=== PATIENT | male | born 1960 | race Hispanic/Latino ===

== ENCOUNTER 2021-08-12 01:08 | Inpatient (IN) | payer OTHER ==
[2021-08-12 03:32] VITALS: BMI 25.2
[2021-08-12] MEDS ORDERED: Ondansetron ODT 4 MG TAB PO PRN (04:01)
[2021-08-12] MEDS ORDERED: Acetaminophen 650 MG Suppository PR PRN (04:01)
[2021-08-12] MEDS: Morphine 2 MG/ML VIAL SLOW IVP PRN ×2 (05:02→11:37)
[2021-08-12] MEDS ORDERED: hydrALAZINE 20 MG/ML VIAL SLOW IVP PRN (06:22)
[2021-08-12] MEDS ORDERED: Sodium Chloride 0.9% 1,000 ML IV SCH ×2 (06:45→07:45)
[2021-08-12 07:00] LABS: Hemoglobin A1c 5.1 % (4.0-6.0)
[2021-08-12 07:33] LABS: HBCM Index 0.08 S/CO (0-0.79); HBSAg Index 0.19 S/CO (0-0.99); Hep A IgM AB Non-Reactive (NonReactive); Hep A IgM S/CO 0.35 S/CO (0-0.79); Hep B Surf Ag Non-Reactive S/CO (NonReactive); Hepatitis B Core IgM Abs Non-Reactive (NonReactive)
[2021-08-12 07:36] LABS: Hep C IgG Ab Reflex HepC Qnt (NonReactive)
[2021-08-12] MEDS: Acetaminophen 325 MG TAB PO PRN ×2 (08:49→18:04)
[2021-08-12] MEDS: Sodium Chloride 0.9% 1,000 ML IV SCH ×2 (08:50→20:37)
[2021-08-12] MEDS ORDERED: Enoxaparin Sodium 80 MG/0.8 ML SYRINGE SC SCH (09:00)
[2021-08-12 11:42] LABS: Hep C Index 14.53 S/CO (0-0.79)
[2021-08-12] MEDS ORDERED: Folic Acid 1 MG TAB PO SCH (13:45)
[2021-08-12] MEDS ORDERED: Thiamine 100 MG TAB PO SCH (13:45)
[2021-08-12] MEDS ORDERED: Magnevist 469MG/ML 20 ML VIAL ONE (15:06)
[2021-08-12] MEDS: Enoxaparin Sodium 80 MG/0.8 ML SYRINGE SC SCH (20:37)
[2021-08-12] MEDS: Morphine 4 MG/ML VIAL SLOW IVP PRN (22:15)
[2021-08-13] MEDS: Morphine 4 MG/ML VIAL SLOW IVP PRN ×6 (03:00→23:13)
[2021-08-13 06:16] LABS: #Basophils 0.1 thou/uL (0.0-0.2); #Eosinphils 0.1 thou/uL (0.0-0.7); #Lymphocytes 1.5 thou/uL (1.20-3.40); #Monocytes 0.6 thou/uL (0.11-0.59); %Basophils 0.8 % (0.0-1.0); %Eosinophils 1.8 % (0.0-10.0); %Lymphocytes 23.9 % (21.0-51.0); %Monocytes 9.9 % (0.0-10.0); %Neutrophils 63.6 % (42.0-75.0); Hemoglobin 14.4 g/dL (14.0-18.0); Mean Corpuscular HGB CONC 33.2 g/dL (32.0-36.0); Mean Corpuscular Hemoglobin 32.5 pg (27.0-31.0); Mean Corpuscular Volume 97.9 fL (78.0-98.0); Mean Platelet Volume 7.8 fL (7.4-10.4); Platelet Count 143 thou/uL (130-400); Red Blood Cell (RBC) Count 4.43 mill/uL (4.70-6.10); White Blood Cell (WBC) Count 6.3 thou/uL (4.8-10.8)
[2021-08-13 06:28] LABS: Anion Gap 9 mmol/L (10-20); BUN (Urea Nitrogen) 13 mg/dL (8.4-25.7); Calc. Creatinine Clearance 132 mL/min (70-130); Calcium 8.7 mg/dL (7.8-10.44); Carbon Dioxide 25 mmol/L (22-29); Chloride 103 mmol/L (98-107); Glucose 95 mg/dL (70-105); Potassium 3.6 mmol/L (3.5-5.1); Sodium 133 mmol/L (136-145)
[2021-08-13] MEDS: Enoxaparin Sodium 80 MG/0.8 ML SYRINGE SC SCH ×2 (08:10→19:47)
[2021-08-13] MEDS: Thiamine 100 MG TAB PO SCH (08:10)
[2021-08-13] MEDS: Multivit, Therapeutic 1 TAB PO SCH (08:10)
[2021-08-13] MEDS: Folic Acid 1 MG TAB PO SCH (08:10)
[2021-08-13] MEDS: Sodium Chloride 0.9% 1,000 ML IV SCH ×2 (12:16→12:50)
[2021-08-13] MEDS: HYDROcodone/Acetaminophen 5/325 mg Tablet PO PRN (14:37)
[2021-08-13] MEDS: Ondansetron PF 4 MG/2 ML Vial IVP PRN (19:59)
[2021-08-13] MEDS ORDERED: Electrolyte Replacement Protocol 1 EACH FS SCH (20:45)
[2021-08-13] MEDS ORDERED: Lorazepam 0.5 MG TAB PO PRN (20:57)
[2021-08-14] MEDS: Ondansetron PF 4 MG/2 ML Vial IVP PRN (00:51)
[2021-08-14] MEDS: HYDROcodone/Acetaminophen 5/325 mg Tablet PO PRN (00:59)
[2021-08-14] MEDS: Morphine 4 MG/ML VIAL SLOW IVP PRN ×4 (02:46→20:16)
[2021-08-14 06:36] LABS: #Lymphocytes 1.1 thou/uL (1.20-3.40); #Monocytes 0.8 thou/uL (0.11-0.59); #Neutrophils 5.7 thou/uL (1.40-6.50); %Basophils 0.1 % (0.0-1.0); %Eosinophils 0.3 % (0.0-10.0); %Lymphocytes 13.8 % (21.0-51.0); %Monocytes 10.6 % (0.0-10.0); %Neutrophils 75.2 % (42.0-75.0); Hemoglobin 14.1 g/dL (14.0-18.0); Mean Corpuscular HGB CONC 32.2 g/dL (32.0-36.0); Mean Corpuscular Hemoglobin 31.3 pg (27.0-31.0); Mean Corpuscular Volume 97.4 fL (78.0-98.0); Mean Platelet Volume 7.9 fL (7.4-10.4); Platelet Count 147 thou/uL (130-400); RBC Distribution Width 12.9 % (11.5-14.5); Red Blood Cell (RBC) Count 4.51 mill/uL (4.70-6.10); White Blood Cell (WBC) Count 7.6 thou/uL (4.8-10.8)
[2021-08-14 06:52] LABS: Phosphorus 3.7 mg/dL (2.3-4.7)
[2021-08-14 07:00] LABS: ALT (SGPT) 52 U/L (8-55); AST (SGOT) 221 U/L (5-34); Albumin 3.3 g/dL (3.5-5.0); Alkaline Phosphatase 172 U/L (40-110); Anion Gap 13 mmol/L (10-20); BUN (Urea Nitrogen) 11 mg/dL (8.4-25.7); Bilirubin, Total 1.2 mg/dL (0.2-1.2); Calc. Creatinine Clearance 125 mL/min (70-130); Calcium 8.3 mg/dL (7.8-10.44); Carbon Dioxide 22 mmol/L (22-29); Chloride 101 mmol/L (98-107); Globulin 3.7 g/dL (2.4-3.5); Glucose 105 mg/dL (70-105); Magnesium 1.7 mg/dL (1.6-2.6); Potassium 3.7 mmol/L (3.5-5.1); Sodium 132 mmol/L (136-145)
[2021-08-14] MEDS ORDERED: Magnesium Sulfate 2 GM in Sodium Chloride 0.9% 100 ML IVPB SCH (08:00)
[2021-08-14] MEDS: Enoxaparin Sodium 80 MG/0.8 ML SYRINGE SC SCH ×2 (09:45→22:00)
[2021-08-14] MEDS: Multivit, Therapeutic 1 TAB PO SCH (09:45)
[2021-08-14] MEDS: Thiamine 100 MG TAB PO SCH (09:46)
[2021-08-14] MEDS: Folic Acid 1 MG TAB PO SCH (09:46)
[2021-08-14] MEDS: Sodium Chloride 0.9% 1,000 ML IV SCH (09:47)
[2021-08-14 19:14] LABS: HCV log10 6.887 (.); Hep C PCR-Quant 7710000 IU/mL (.)
[2021-08-14] MEDS ORDERED: Polyethylene Glycol 3350 17 GM Packet PO PRN (19:27)
[2021-08-14] MEDS: Senokot S 8.6-50 MG TAB PO SCH (21:59)
[2021-08-15] MEDS: HYDROcodone/Acetaminophen 5/325 mg Tablet PO PRN ×3 (00:33→13:54)
[2021-08-15] MEDS: Morphine 4 MG/ML VIAL SLOW IVP PRN (01:37)
[2021-08-15] MEDS: Sodium Chloride 0.9% 1,000 ML IV SCH (06:07)
[2021-08-15] MEDS: Enoxaparin Sodium 80 MG/0.8 ML SYRINGE SC SCH (09:12)
[2021-08-15] MEDS: Senokot S 8.6-50 MG TAB PO SCH (09:13)
[2021-08-15] MEDS: Multivit, Therapeutic 1 TAB PO SCH (09:14)
[2021-08-15] MEDS: Thiamine 100 MG TAB PO SCH (09:14)
[2021-08-15] MEDS: Folic Acid 1 MG TAB PO SCH (09:14)
[2021-08-15] MEDS: Morphine IR 10 MG/5 ML UDCUP PO PRN ×2 (11:54→18:14)
[2021-08-15] MEDS: Apixaban 5 MG TAB PO SCH (20:45)
[2021-08-15] MEDS ORDERED: Polyethylene Glycol 3350 17 GM Packet PO SCH (21:00)
[2021-08-16] MEDS: Senokot S 8.6-50 MG TAB PO SCH ×2 (01:45→08:24)
[2021-08-16] MEDS: Sodium Chloride 0.9% 1,000 ML IV SCH (01:48)
[2021-08-16] MEDS: HYDROcodone/Acetaminophen 5/325 mg Tablet PO PRN ×2 (01:57→08:46)
[2021-08-16] MEDS: Apixaban 5 MG TAB PO SCH (08:24)
[2021-08-16] MEDS: Folic Acid 1 MG TAB PO SCH (08:25)
[2021-08-16] MEDS: Multivit, Therapeutic 1 TAB PO SCH (08:25)
[2021-08-16 08:57] VITALS: BP 166/86; TEMP 98.2
[2021-08-16] MEDS: Morphine IR 10 MG/5 ML UDCUP PO PRN (11:57)
[2021-08-16] MEDS ORDERED: Lorazepam 0.5 MG TAB PO PRN (20:40)
== END 2021-08-16 12:21 | disposition home or self-care (01) | DRG 441 ==
LOC: T4-A 01:08 → OBSVTOIN 08-13 08:27
PROVIDERS: ADMIT Internal Medicine; ATTEND Internal Medicine
DX: I81 Portal vein thrombosis (principal); K85.90 Acute pancreatitis without necrosis or infection, unspecified; C22.0 Liver cell carcinoma; K76.6 Portal hypertension; E87.1 Hypo-osmolality and hyponatremia; Z20.822 Contact with and (suspected) exposure to COVID-19; K70.31 Alcoholic cirrhosis of liver with ascites; B19.20 Unspecified viral hepatitis C without hepatic coma; F10.20 Alcohol dependence, uncomplicated; E86.0 Dehydration; R79.89 Other specified abnormal findings of blood chemistry; R00.1 Bradycardia, unspecified; K86.89 Other specified diseases of pancreas
CPT/HCPCS: 36415; 74183; 76705; 80048; 80053; 80074; 82105; 83036; 83735; 84100; 85025; 87522; 93005; 93010; 96372; 96374; 96376; A9579; G0378; J0360; J1650; J2270; J2405; J3475; J3490; J7050

== ENCOUNTER 2022-05-01 18:51 | Inpatient (IN) | payer OTHER ==
[2022-05-01] MEDS ORDERED: Ondansetron PF 4 MG/2 ML Vial ONE (19:25)
[2022-05-01] MEDS ORDERED: Octreotide Acetate 100 MCG/ML VIAL ONE (19:25)
[2022-05-01] MEDS ORDERED: Morphine 4 MG/ML VIAL ONE (19:25)
[2022-05-01] MEDS ORDERED: cefTRIAXone\\ROCEPHIN 2 GM VIAL ONE (19:25)
[2022-05-01] MEDS ORDERED: Pantoprazole 40 MG VIAL ONE (19:25)
[2022-05-01] MEDS ORDERED: Octreotide Acetate 1,250 MCG in Sodium Chloride 0.9% 250 ML 250 ML IVPB SCH (19:30)
[2022-05-01] MEDS ORDERED: Pantoprazole 80 MG, Admixture Fee 1 EACH in Sodium Chloride 0.9% 100 ML IVPB SCH (19:30)
[2022-05-01 19:44] LABS: #Basophils 0.1 thou/uL (0.0-0.2); #Eosinphils 0.1 thou/uL (0.0-0.7); #Lymphocytes 1.5 thou/uL (1.20-3.40); #Monocytes 0.4 thou/uL (0.11-0.59); #Neutrophils 3.9 thou/uL (1.40-6.50); %Basophils 0.9 % (0.0-1.0); %Eosinophils 1.5 % (0.0-10.0); %Lymphocytes 25.2 % (21.0-51.0); %Monocytes 6.8 % (0.0-10.0); %Neutrophils 65.7 % (42.0-75.0); Hemoglobin 12.4 g/dL (14.0-18.0); Mean Corpuscular HGB CONC 34.7 g/dL (32.0-36.0); Mean Corpuscular Hemoglobin 33.4 pg (27.0-31.0); Mean Corpuscular Volume 96.2 fl (78.0-98.0); Mean Platelet Volume 7.6 fL (7.4-10.4); Platelet Count 114 10x3/uL (130-400); RBC Distribution Width 14.7 % (11.5-14.5); Red Blood Cell (RBC) Count 3.71 mill/uL (4.70-6.10); White Blood Cell (WBC) Count 5.9 10x3/uL (4.8-10.8)
[2022-05-01 19:57] LABS: INR-International Normal Ratio 1.1; Prothrombin Time 14.2 sec (12.0-14.7)
[2022-05-01 19:58] LABS: PTT 29.9 sec (22.9-36.1)
[2022-05-01 20:02] LABS: ALT (SGPT) 45 U/L (8-55); AST (SGOT) 73 U/L (5-34); Albumin 3.6 g/dL (3.4-4.8); Alkaline Phosphatase 264 U/L (40-110); Anion Gap 13 mmol/L (10-20); BUN (Urea Nitrogen) 28 mg/dL (8.4-25.7); Bilirubin, Total 0.6 mg/dL (0.2-1.2); Calc. Creatinine Clearance 0 mL/min (70-130); Calcium 8.9 mg/dL (7.8-10.44); Carbon Dioxide 23 mmol/L (23-31); Chloride 108 mmol/L (98-107); Estimated GFR 104; Globulin 3.8 g/dL (2.4-3.5); Glucose 102 mg/dL (80-115); Potassium 3.9 mmol/L (3.5-5.1); Protein, Total 7.4 g/dL (5.8-8.1); Sodium 140 mmol/L (136-145)
[2022-05-01] MEDS ORDERED: Acetaminophen 325 MG TAB PO PRN (21:30)
[2022-05-01] MEDS ORDERED: Ondansetron PF 4 MG/2 ML Vial IVP PRN (21:30)
[2022-05-01] MEDS ORDERED: Ondansetron ODT 4 MG TAB SL PRN (21:30)
[2022-05-01] MEDS: Sodium Chloride 0.9% 1,000 ML IV SCH (22:00)
[2022-05-01 22:54] VITALS: BMI 24.7
[2022-05-01 23:41] LABS: Hemoglobin 11.1 g/dL (14.0-18.0)
[2022-05-02 00:11] LABS: SARS-CoV-2 NAA Rapid Test Not Detected (NotDetected)
[2022-05-02] MEDS: Sodium Chloride 0.9% 1,000 ML IV SCH ×2 (05:16→14:27)
[2022-05-02 06:07] LABS: #Eosinphils 0.1 thou/uL (0.0-0.7); #Lymphocytes 1.2 thou/uL (1.20-3.40); #Monocytes 0.4 thou/uL (0.11-0.59); #Neutrophils 2.2 thou/uL (1.40-6.50); %Basophils 0.6 % (0.0-1.0); %Eosinophils 2.3 % (0.0-10.0); %Monocytes 10.4 % (0.0-10.0); %Neutrophils 56.7 % (42.0-75.0); Hemoglobin 11.1 g/dL (14.0-18.0); Mean Corpuscular HGB CONC 33.3 g/dL (32.0-36.0); Mean Corpuscular Hemoglobin 32.3 pg (27.0-31.0); Mean Corpuscular Volume 96.9 fl (78.0-98.0); Mean Platelet Volume 7.6 fL (7.4-10.4); Platelet Count 82 10x3/uL (130-400); RBC Distribution Width 14.5 % (11.5-14.5); Red Blood Cell (RBC) Count 3.44 mill/uL (4.70-6.10); White Blood Cell (WBC) Count 3.9 10x3/uL (4.8-10.8)
[2022-05-02 06:20] LABS: Anion Gap 9 mmol/L (10-20); BUN (Urea Nitrogen) 21 mg/dL (8.4-25.7); Calc. Creatinine Clearance 99 mL/min (70-130); Carbon Dioxide 22 mmol/L (23-31); Chloride 110 mmol/L (98-107); Estimated GFR 105; Glucose 94 mg/dL (80-115); Potassium 4.2 mmol/L (3.5-5.1); Sodium 137 mmol/L (136-145)
[2022-05-02] MEDS: Pantoprazole 40 MG VIAL IVP SCH ×2 (10:04→20:07)
[2022-05-02] MEDS ORDERED: Lidocaine 1% PF 5 ML VIAL ONE (12:17)
[2022-05-02] MEDS ORDERED: PROPOFOL 200 MG/20 ML VIAL ONE (12:17)
[2022-05-02] MEDS ORDERED: hydrALAZINE 20 MG/ML VIAL ONE (12:47)
[2022-05-02] MEDS ORDERED: Fentanyl 100 MCG/2 ML VIAL ONE (12:58)
[2022-05-02] MEDS: Fentanyl 100 MCG/2 ML VIAL SLOW IVP PRN (14:26)
[2022-05-02] MEDS: cefTRIAXone\\ROCEPHIN 1 GM in Sodium Chloride 0.9% 100 ML IVPB SCH (14:27)
[2022-05-02] MEDS: Morphine 2 MG/ML VIAL SLOW IVP PRN ×2 (15:52→20:08)
[2022-05-02] MEDS ORDERED: Acetaminophen 325 MG TAB PO SCH ×2 (17:30)
[2022-05-02] MEDS ORDERED: Carvedilol 6.25 MG TAB PO SCH (17:45)
[2022-05-03] MEDS: Octreotide Acetate 1,250 MCG in Sodium Chloride 0.9% 250 ML 250 ML IVPB SCH (02:58)
[2022-05-03] MEDS: Fentanyl 100 MCG/2 ML VIAL SLOW IVP PRN (02:59)
[2022-05-03 06:01] LABS: Hemoglobin 12.3 g/dL (14.0-18.0)
[2022-05-03 06:28] LABS: Anion Gap 11 mmol/L (10-20); BUN (Urea Nitrogen) 12 mg/dL (8.4-25.7); Calc. Creatinine Clearance 110 mL/min (70-130); Calcium 8.3 mg/dL (7.8-10.44); Carbon Dioxide 20 mmol/L (23-31); Chloride 107 mmol/L (98-107); Estimated GFR 108; Glucose 106 mg/dL (80-115); Potassium 3.7 mmol/L (3.5-5.1); Sodium 134 mmol/L (136-145)
[2022-05-03] MEDS: Carvedilol 6.25 MG TAB PO SCH ×2 (08:59→18:12)
[2022-05-03] MEDS: Pantoprazole 40 MG VIAL IVP SCH ×2 (08:59→20:55)
[2022-05-03] MEDS: Sodium Chloride 0.9% 1,000 ML IV SCH (13:42)
[2022-05-03] MEDS: cefTRIAXone\\ROCEPHIN 1 GM in Sodium Chloride 0.9% 100 ML IVPB SCH (13:42)
[2022-05-03] MEDS: Morphine 2 MG/ML VIAL SLOW IVP PRN (20:53)
[2022-05-04] MEDS: Sodium Chloride 0.9% 1,000 ML IV SCH (05:29)
[2022-05-04 08:58] VITALS: TEMP 97.6
[2022-05-04] MEDS: Pantoprazole 40 MG VIAL IVP SCH (09:11)
[2022-05-04] MEDS: Carvedilol 6.25 MG TAB PO SCH (09:11)
[2022-05-04] MEDS: Octreotide Acetate 1,250 MCG in Sodium Chloride 0.9% 250 ML 250 ML IVPB SCH (10:15)
[2022-05-04 12:57] VITALS: BP 129/76
== END 2022-05-04 13:48 | disposition home or self-care (01) | DRG 432 ==
LOC: ERS 18:51 → SURG A 21:13
PROVIDERS: ADMIT Student in an Organized Health Care Education/Training Program; ATTEND Internal Medicine
PROC: 06L38CZ Occlusion of Esophageal Vein with Extraluminal Device, Via Natural or Artificial Opening Endoscopic (ICD-10-PCS; principal; 2022-05-02)
DX: K70.30 Alcoholic cirrhosis of liver without ascites (principal); I85.11 Secondary esophageal varices with bleeding; C22.8 Malignant neoplasm of liver, primary, unspecified as to type; D62 Acute posthemorrhagic anemia; K76.6 Portal hypertension; Z20.822 Contact with and (suspected) exposure to COVID-19; I10 Essential (primary) hypertension; K21.9 Gastro-esophageal reflux disease without esophagitis; D69.59 Other secondary thrombocytopenia; K31.89 Other diseases of stomach and duodenum; B18.2 Chronic viral hepatitis C; Z87.891 Personal history of nicotine dependence; Z79.899 Other long term (current) drug therapy
CPT/HCPCS: 36415; 71045; 80048; 80053; 84484; 85014; 85018; 85025; 85610; 85730; 86850; 86900; 86901; 93005; 96365; 96375; C9113; J0360; J0696; J2270; J2272; J2354; J2405; J2704; J3010; J3490; J7050; U0002

== ENCOUNTER 2022-05-12 15:13 | Inpatient (IN) | payer OTHER ==
[~2022-05-12 15:13] MED LIST: Iopamidol-370 76% 500 ML 1 ML ONE
[2022-05-12 17:14] LABS: #Eosinphils 0.2 thou/uL (0.0-0.7); #Lymphocytes 1.3 thou/uL (1.20-3.40); #Monocytes 0.5 thou/uL (0.11-0.59); #Neutrophils 2.9 thou/uL (1.40-6.50); %Basophils 0.8 % (0.0-1.0); %Eosinophils 3.5 % (0.0-10.0); %Lymphocytes 27.3 % (21.0-51.0); %Monocytes 9.7 % (0.0-10.0); %Neutrophils 58.6 % (42.0-75.0); Hemoglobin 12.3 g/dL (14.0-18.0); Mean Corpuscular HGB CONC 35.1 g/dL (32.0-36.0); Mean Corpuscular Hemoglobin 33.7 pg (27.0-31.0); Mean Corpuscular Volume 96.2 fl (78.0-98.0); Mean Platelet Volume 7.9 fL (7.4-10.4); Platelet Count 112 10x3/uL (130-400); RBC Distribution Width 14.3 % (11.5-14.5); Red Blood Cell (RBC) Count 3.64 mill/uL (4.70-6.10); White Blood Cell (WBC) Count 4.9 10x3/uL (4.8-10.8)
[2022-05-12 17:22] LABS: PTT 29.6 sec (22.9-36.1); Prothrombin Time 13.6 sec (12.0-14.7)
[2022-05-12 17:32] LABS: ALT (SGPT) 51 U/L (8-55); AST (SGOT) 74 U/L (5-34); Albumin 3.5 g/dL (3.4-4.8); Alkaline Phosphatase 333 U/L (40-110); Anion Gap 13 mmol/L (10-20); BUN (Urea Nitrogen) 20 mg/dL (8.4-25.7); Bilirubin, Total 0.5 mg/dL (0.2-1.2); Calc. Creatinine Clearance 0 mL/min (70-130); Calcium 8.4 mg/dL (7.8-10.44); Carbon Dioxide 21 mmol/L (23-31); Chloride 110 mmol/L (98-107); Estimated GFR 101; Globulin 4.2 g/dL (2.4-3.5); Glucose 112 mg/dL (80-115); Iron 59 ug/dL (65-175); Iron Binding Capacity, Total 341 mcg/dL (261-462); Lipase 95 U/L (8-78); Potassium 4.3 mmol/L (3.5-5.1); Protein, Total 7.7 g/dL (5.8-8.1); Sodium 140 mmol/L (136-145)
[2022-05-12] MEDS ORDERED: Octreotide Acetate 500 MCG/ML VIAL ONE (18:37)
[2022-05-12] MEDS ORDERED: Pantoprazole 40 MG VIAL ONE (18:37)
[2022-05-12] MEDS ORDERED: Octreotide Acetate 1,250 MCG in Sodium Chloride 0.9% 250 ML 250 ML IVPB SCH (19:00)
[2022-05-12] MEDS ORDERED: Senokot S 8.6-50 MG TAB PO PRN (22:29)
[2022-05-12] MEDS ORDERED: Dextrose 5 %-0.45 % NaCl 1,000 ML IV SCH (22:30)
[2022-05-12 23:12] VITALS: BMI 25.2
[2022-05-12] MEDS ORDERED: Acetaminophen 325 MG TAB PO PRN (23:31)
[2022-05-13] MEDS: Octreotide Acetate 1,250 MCG in Sodium Chloride 0.9% 250 ML 250 ML IVPB SCH ×2 (00:01→22:20)
[2022-05-13 07:41] LABS: #Eosinphils 0.1 thou/uL (0.0-0.7); #Lymphocytes 1.1 thou/uL (1.20-3.40); #Monocytes 0.3 thou/uL (0.11-0.59); #Neutrophils 2.5 thou/uL (1.40-6.50); %Basophils 0.3 % (0.0-1.0); %Eosinophils 2.1 % (0.0-10.0); %Lymphocytes 26.6 % (21.0-51.0); %Monocytes 8.6 % (0.0-10.0); %Neutrophils 62.4 % (42.0-75.0); Hemoglobin 11.9 g/dL (14.0-18.0); Mean Corpuscular HGB CONC 34.2 g/dL (32.0-36.0); Mean Corpuscular Hemoglobin 32.8 pg (27.0-31.0); Mean Corpuscular Volume 96.1 fl (78.0-98.0); Mean Platelet Volume 7.5 fL (7.4-10.4); Platelet Count 89 10x3/uL (130-400); RBC Distribution Width 14.2 % (11.5-14.5); Red Blood Cell (RBC) Count 3.63 mill/uL (4.70-6.10); White Blood Cell (WBC) Count 3.9 10x3/uL (4.8-10.8)
[2022-05-13 07:55] LABS: ALT (SGPT) 49 U/L (8-55); AST (SGOT) 75 U/L (5-34); Albumin 3.2 g/dL (3.4-4.8); Alkaline Phosphatase 273 U/L (40-110); Anion Gap 11 mmol/L (10-20); BUN (Urea Nitrogen) 13 mg/dL (8.4-25.7); Bilirubin, Total 0.6 mg/dL (0.2-1.2); Calc. Creatinine Clearance 107 mL/min (70-130); Calcium 8.1 mg/dL (7.8-10.44); Carbon Dioxide 21 mmol/L (23-31); Chloride 107 mmol/L (98-107); Estimated GFR 108; Globulin 3.5 g/dL (2.4-3.5); Glucose 124 mg/dL (80-115); Potassium 4.1 mmol/L (3.5-5.1); Protein, Total 6.7 g/dL (5.8-8.1); Sodium 135 mmol/L (136-145)
[2022-05-13] MEDS: Carvedilol 6.25 MG TAB PO SCH ×2 (08:42→16:33)
[2022-05-13] MEDS: Pantoprazole 40 MG VIAL IVP SCH (08:42)
[2022-05-14] MEDS: Carvedilol 6.25 MG TAB PO SCH (08:29)
[2022-05-14] MEDS: Pantoprazole 40 MG VIAL IVP SCH (08:31)
[2022-05-14] MEDS ORDERED: Pantoprazole 40 MG VIAL IVP SCH (09:00)
[2022-05-14] MEDS ORDERED: PROPOFOL 200 MG/20 ML VIAL ONE (11:13)
[2022-05-14] MEDS ORDERED: Lidocaine 1% PF 5 ML VIAL ONE (11:13)
[2022-05-14] MEDS ORDERED: Ondansetron PF 4 MG/2 ML Vial ONE (11:42)
[2022-05-14] MEDS ORDERED: Fentanyl 100 MCG/2 ML VIAL ONE (12:02)
[2022-05-14] MEDS ORDERED: hydrALAZINE 20 MG/ML VIAL ONE (12:30)
[2022-05-14] MEDS ORDERED: hydrALAZINE 20 MG/ML VIAL SLOW IVP PRN (12:44)
[2022-05-14] MEDS ORDERED: hydrALAZINE 20 MG/ML VIAL SLOW IVP SCH (12:45)
[2022-05-14 13:57] VITALS: TEMP 97.7
[2022-05-14] MEDS ORDERED: Morphine IR Tab 15 MG TAB PO PRN (14:25)
[2022-05-14 16:08] VITALS: BP 171/90
[2022-05-16] MEDS ORDERED: FLU VACC QS2022-23(6MOS UP)/PF 60 MCG/0.5 ML SYRINGE IM ONE (09:00)
== END 2022-05-14 18:24 | disposition home or self-care (01) | DRG 432 ==
LOC: ERS 15:13 → ERHOLD 20:11 → T4-A 23:13 → OBSVTOIN 05-14 08:59
PROVIDERS: ADMIT Student in an Organized Health Care Education/Training Program; ATTEND Internal Medicine
PROC: 06L38CZ Occlusion of Esophageal Vein with Extraluminal Device, Via Natural or Artificial Opening Endoscopic (ICD-10-PCS; principal; 2022-05-14)
DX: K70.30 Alcoholic cirrhosis of liver without ascites (principal); I85.11 Secondary esophageal varices with bleeding; C22.8 Malignant neoplasm of liver, primary, unspecified as to type; K22.10 Ulcer of esophagus without bleeding; K21.9 Gastro-esophageal reflux disease without esophagitis; I10 Essential (primary) hypertension; Z20.822 Contact with and (suspected) exposure to COVID-19; Z79.899 Other long term (current) drug therapy; Z87.891 Personal history of nicotine dependence; Z86.711 Personal history of pulmonary embolism
CPT/HCPCS: 36415; 74177; 80053; 82728; 83540; 83550; 83690; 85025; 85610; 85730; 86850; 86900; 86901; 96365; 96366; 96375; 96376; C9113; G0378; J0360; J2354; J2405; J2704; J3010; J7042; J7050; Q9967; U0003; U0005

== ENCOUNTER 2022-10-16 06:11 | Day surgery (SDC) | payer OTHER ==
[2022-10-15 10:17] VITALS: BMI 23.6
[2022-10-16] MEDS ORDERED: PROPOFOL 200 MG/20 ML VIAL ONE (08:05)
[2022-10-16] MEDS ORDERED: Lidocaine 1% PF 5 ML VIAL ONE (08:08)
== END 2022-10-16 09:35 | disposition home or self-care (01) ==
LOC: SDC 06:11
PROVIDERS: ATTEND Internal Medicine Gastroenterology
PROC: 06L38CZ Occlusion of Esophageal Vein with Extraluminal Device, Via Natural or Artificial Opening Endoscopic (ICD-10-PCS; principal; 2022-10-16)
DX: K76.6 Portal hypertension (principal); K74.60 Unspecified cirrhosis of liver; I85.10 Secondary esophageal varices without bleeding; K31.89 Other diseases of stomach and duodenum; F17.210 Nicotine dependence, cigarettes, uncomplicated; B16.2 Acute hepatitis B without delta-agent with hepatic coma; I81 Portal vein thrombosis; C22.0 Liver cell carcinoma; Z79.899 Other long term (current) drug therapy
CPT/HCPCS: J2704

== ENCOUNTER 2022-12-25 06:12 | Day surgery (SDC) | payer OTHER ==
[2022-12-24 11:08] VITALS: BMI 20.8
[2022-12-25] MEDS ORDERED: PROPOFOL 200 MG/20 ML VIAL ONE (07:57)
[2022-12-25] MEDS ORDERED: Lidocaine 1% PF 5 ML VIAL ONE (07:57)
== END 2022-12-25 10:26 | disposition home or self-care (01) ==
LOC: SDC 06:12
PROVIDERS: ATTEND Internal Medicine Gastroenterology
PROC: 0DJ08ZZ Inspection of Upper Intestinal Tract, Via Natural or Artificial Opening Endoscopic (ICD-10-PCS; principal; 2022-12-25)
DX: K64.8 Other hemorrhoids (principal); K76.6 Portal hypertension; K31.89 Other diseases of stomach and duodenum; C22.0 Liver cell carcinoma; K74.60 Unspecified cirrhosis of liver; I85.00 Esophageal varices without bleeding; F17.210 Nicotine dependence, cigarettes, uncomplicated; K62.5 Hemorrhage of anus and rectum; Z79.899 Other long term (current) drug therapy
CPT/HCPCS: J2704

== ENCOUNTER 2023-01-30 08:58 | Outpatient (CLI) | payer OTHER ==
[2023-01-30] MEDS ORDERED: Iopamidol 370 76% 100 ML VIAL ONE (12:56)
== END 2023-01-30 08:59 | disposition home or self-care (01) ==
LOC: BICCT 08:58
PROVIDERS: ATTEND Internal Medicine Hematology & Oncology
DX: C22.0 Liver cell carcinoma (principal); R91.8 Other nonspecific abnormal finding of lung field; K63.89 Other specified diseases of intestine; K74.60 Unspecified cirrhosis of liver; J98.4 Other disorders of lung; I81 Portal vein thrombosis; R59.0 Localized enlarged lymph nodes; R18.8 Other ascites; R16.0 Hepatomegaly, not elsewhere classified; R16.1 Splenomegaly, not elsewhere classified
CPT/HCPCS: 71260; 74177; Q9967

== ENCOUNTER 2023-08-27 05:53 | Day surgery (SDC) | payer MEDICARE ==
[2023-08-26 13:23] VITALS: BMI 22.6
[2023-08-27] MEDS ORDERED: Lidocaine 1% PF 5 ML VIAL ONE (07:10)
[2023-08-27] MEDS ORDERED: PROPOFOL 40 ML ONE (07:11)
[2023-08-27] MEDS ORDERED: Glycopyrrolate 0.2 MG/ML 5 ML SYRINGE ONE (07:41)
[2023-08-27] MEDS ORDERED: Ondansetron PF 4 MG/2 ML Vial ONE (07:41)
[2023-08-27] MEDS ORDERED: ePHEDrine Sulfate 50 MG/10 ML VIAL ONE (07:48)
== END 2023-08-27 08:59 | disposition home or self-care (01) ==
LOC: SDC 05:53
PROVIDERS: ATTEND Internal Medicine Gastroenterology
PROC: 0DJ08ZZ Inspection of Upper Intestinal Tract, Via Natural or Artificial Opening Endoscopic (ICD-10-PCS; principal; 2023-08-27)
DX: I85.10 Secondary esophageal varices without bleeding (principal); K76.6 Portal hypertension; K31.89 Other diseases of stomach and duodenum; K74.60 Unspecified cirrhosis of liver; B18.2 Chronic viral hepatitis C; I81 Portal vein thrombosis; C22.0 Liver cell carcinoma; Z79.899 Other long term (current) drug therapy; F17.210 Nicotine dependence, cigarettes, uncomplicated
CPT/HCPCS: 43235; J2704; J2405

== ENCOUNTER 2024-02-15 08:17 | Observation (INO) | payer MEDICARE ==
[2024-02-15] MEDS ORDERED: Morphine 4 MG/ML VIAL ONE (09:53)
[2024-02-15] MEDS ORDERED: Ondansetron PF 4 MG/2 ML Vial ONE (09:53)
[2024-02-15 09:58] LABS: INR-International Normal Ratio 1.1; Prothrombin Time 14.3 sec (12.0-14.7)
[2024-02-15 09:59] LABS: PTT 32.4 sec (22.9-36.1)
[2024-02-15 10:07] LABS: #Basophils 0.04 10x3/uL (0.0-0.2); %Basophils 0.8 % (0.0-1.0); %Eosinophils 2.2 % (0.0-10.0); %Neutrophils 74.6 % (42.0-75.0); Hematocrit 36.1 % (42.0-52.0); Mean Corpuscular HGB CONC 33.2 g/dL (32.0-36.0); Mean Corpuscular Hemoglobin 30.6 pg (27.0-31.0); Mean Corpuscular Volume 92.1 fL (78.0-98.0); Mean Platelet Volume 9.1 fL (7.4-10.4); Platelet Count 101 10x3/uL (130-400); RBC Distribution Width 18.1 % (11.5-14.5); Red Blood Cell (RBC) Count 3.92 mill/uL (4.70-6.10)
[2024-02-15] MEDS ORDERED: Iopamidol-370 76% 500 ML MDV (1 ML CHARGE) ONE (10:23)
[2024-02-15 10:32] LABS: Platelet Adequacy Comment Platelets Decreased; Polychromasia SLIGHT = 2-3 cells HPF (0-2); Tear Drops SLIGHT = 2-5 cells HPF (0-1)
[2024-02-15 10:34] LABS: ALT (SGPT) 52 U/L (8-55); AST (SGOT) 60 U/L (5-34); Albumin 3.4 g/dL (3.4-4.8); Alkaline Phosphatase 304 U/L (40-110); Anion Gap 11 mmol/L (10-20); BUN (Urea Nitrogen) 22 mg/dL (8.4-25.7); Bilirubin, Total 0.4 mg/dL (0.2-1.2); Calc. Creatinine Clearance 0 mL/min (70-130); Calcium 8.5 mg/dL (7.8-10.44); Carbon Dioxide 19 mmol/L (23-31); Chloride 106 mmol/L (98-107); Estimated GFR 101; Globulin 4.2 g/dL (2.4-3.5); Glucose 122 mg/dL (80-115); Potassium 4.3 mmol/L (3.5-5.1); Protein, Total 7.6 g/dL (5.8-8.1); Sodium 132 mmol/L (136-145)
[2024-02-15] MEDS ORDERED: Acetaminophen 325 MG TAB PO PRN (11:30)
[2024-02-15 12:55] VITALS: BMI 24.9
[2024-02-15] MEDS: Pantoprazole 40 MG VIAL IVP SCH (13:20)
[2024-02-15] MEDS: FLU (Fluarix Triv) TS24-25(6MOS UP)/PF 45 MCG/0.5 ML Syringe IM ONE (14:34)
[2024-02-15] MEDS ORDERED: Ondansetron PF 4 MG/2 ML Vial IVP PRN (16:00)
[2024-02-15] MEDS ORDERED: Ondansetron ODT 4 MG TAB SL PRN (16:00)
[2024-02-15] MEDS: Morphine IR Tab 15 MG TAB PO PRN (18:04)
[2024-02-15 19:43] LABS: #Basophils 0.03 10x3/uL (0.0-0.2); %Basophils 0.5 % (0.0-1.0); %Eosinophils 3.6 % (0.0-10.0); %Lymphocytes 17.1 % (21.0-51.0); %Monocytes 9.8 % (0.0-10.0); %Neutrophils 68.5 % (42.0-75.0); Hematocrit 36.4 % (42.0-52.0); Mean Corpuscular Hemoglobin 30.3 pg (27.0-31.0); Mean Corpuscular Volume 91.9 fL (78.0-98.0); Mean Platelet Volume 9.1 fL (7.4-10.4); Platelet Count 107 10x3/uL (130-400); RBC Distribution Width 18.3 % (11.5-14.5); Red Blood Cell (RBC) Count 3.96 mill/uL (4.70-6.10)
[2024-02-16] MEDS ORDERED: Ondansetron PF 4 MG/2 ML Vial IVP PRN (01:03)
[2024-02-16] MEDS: Morphine 2 MG/ML VIAL SLOW IVP SCH (01:10)
[2024-02-16 06:45] LABS: Anion Gap 12 mmol/L (10-20); BUN (Urea Nitrogen) 21 mg/dL (8.4-25.7); Calc. Creatinine Clearance 86 mL/min (70-130); Calcium 8.3 mg/dL (7.8-10.44); Carbon Dioxide 19 mmol/L (23-31); Chloride 110 mmol/L (98-107); Estimated GFR 101; Glucose 96 mg/dL (80-115); Potassium 4.3 mmol/L (3.5-5.1); Sodium 137 mmol/L (136-145)
[2024-02-16] MEDS: Pantoprazole 40 MG VIAL IVP SCH (08:57)
[2024-02-16] MEDS: Lisinopril 20 MG TAB PO SCH (09:00)
[2024-02-16 09:53] LABS: Hematocrit 35.7 % (42.0-52.0); Hemoglobin 11.7 g/dL (14.0-18.0); Mean Corpuscular HGB CONC 32.8 g/dL (32.0-36.0); Mean Corpuscular Hemoglobin 30.2 pg (27.0-31.0); Mean Platelet Volume 9.2 fL (7.4-10.4); Platelet Count 94 10x3/uL (130-400); RBC Distribution Width 18.2 % (11.5-14.5); Red Blood Cell (RBC) Count 3.88 mill/uL (4.70-6.10)
[2024-02-16] MEDS ORDERED: fentaNYL 50 mcg/mL 1 mL Vial ONE ×2 (11:04→12:10)
[2024-02-16] MEDS ORDERED: Lidocaine 1% PF 5 ML VIAL ONE (11:04)
[2024-02-16] MEDS ORDERED: PROPOFOL 20 ML ONE (11:04)
[2024-02-16] MEDS: Octreotide Acetate 1,250 MCG in Sodium Chloride 0.9% 250 ML 250 ML IVPB SCH (12:43)
[2024-02-16] MEDS ORDERED: Acetaminophen 650 MG Suppository PR PRN (16:05)
[2024-02-16] MEDS: Acetaminophen 500 MG TAB PO PRN (16:31)
[2024-02-16 20:30] VITALS: BP 135/72; TEMP 98.2
[2024-03-01 17:46] LABS: Anion Gap 13 mmol/L (10-20); BUN (Urea Nitrogen) 22 mg/dL (8.4-25.7); Calc. Creatinine Clearance 81 mL/min (70-130); Calcium 8.6 mg/dL (7.6-10.4); Carbon Dioxide 22 mmol/L (23-31); Chloride 106 mmol/L (98-107); Estimated GFR 99; Glucose 108 mg/dL (80-115); Potassium 4.5 mmol/L (3.5-5.1); Sodium 136 mmol/L (136-145)
[2024-03-01 17:47] LABS: Hematocrit 37.8 % (42.0-52.0); Hemoglobin 12.6 g/dL (14.0-18.0); Mean Corpuscular HGB CONC 33.3 g/dL (32.0-36.0); Mean Corpuscular Hemoglobin 30.1 pg (27.0-31.0); Mean Corpuscular Volume 90.2 fL (78.0-98.0); Mean Platelet Volume 9.4 fL (7.4-10.4); Platelet Count 106 10x3/uL (130-400); RBC Distribution Width 18.1 % (11.5-14.5); Red Blood Cell (RBC) Count 4.19 mill/uL (4.70-6.10)
== END 2024-02-17 14:58 | disposition home or self-care (01) ==
LOC: ERS 08:17 → T4-A 12:34
PROVIDERS: ADMIT Internal Medicine; ATTEND Student in an Organized Health Care Education/Training Program
PROC: 06L38CZ Occlusion of Esophageal Vein with Extraluminal Device, Via Natural or Artificial Opening Endoscopic (ICD-10-PCS; principal; 2024-02-15)
DX: I85.00 Esophageal varices without bleeding (principal); C22.0 Liver cell carcinoma; K92.2 Gastrointestinal hemorrhage, unspecified; I81 Portal vein thrombosis; K76.6 Portal hypertension; K31.89 Other diseases of stomach and duodenum; K74.60 Unspecified cirrhosis of liver; B19.20 Unspecified viral hepatitis C without hepatic coma; D69.6 Thrombocytopenia, unspecified; I10 Essential (primary) hypertension; Z98.890 Other specified postprocedural states; F17.210 Nicotine dependence, cigarettes, uncomplicated; Z79.899 Other long term (current) drug therapy
CPT/HCPCS: 43244; 74177; 80048 ×2; 80053; 85025 ×2; 85027 ×2; 85610; 85730; 93005; 96374; 96375; 99285; J2272 ×2; J2405; J2470 ×2; J2704; J3010; J7050; 36415; 82274; J2354; Q9967

== ENCOUNTER 2024-11-16 06:47 | Day surgery (SDC) | payer OTHER ==
[2024-11-15 14:20] VITALS: BMI 24.7
[2024-11-16] MEDS ORDERED: PROPOFOL 20 ML ONE (08:24)
== END 2024-11-16 10:10 | disposition home or self-care (01) ==
LOC: SDC 06:47
PROVIDERS: ATTEND Internal Medicine Gastroenterology
PROC: 0DJ08ZZ Inspection of Upper Intestinal Tract, Via Natural or Artificial Opening Endoscopic (ICD-10-PCS; principal; 2024-11-16)
DX: K74.60 Unspecified cirrhosis of liver (principal); I85.10 Secondary esophageal varices without bleeding; K76.6 Portal hypertension; Z87.891 Personal history of nicotine dependence
CPT/HCPCS: 43235; J2704

== ENCOUNTER 2025-02-09 05:42 | Day surgery (SDC) | payer OTHER ==
[2025-02-08 09:33] VITALS: BMI 23.8
[2025-02-09] MEDS ORDERED: Lidocaine 1% PF 5 ML VIAL ONE (06:57)
[2025-02-09] MEDS ORDERED: GLYCOPYRROLATE/PF 0.2 MG/ML VIAL ONE (07:49)
[2025-02-09] MEDS ORDERED: PROPOFOL 200 MG/20 ML VIAL ONE (07:55)
== END 2025-02-09 08:48 | disposition home or self-care (01) ==
LOC: SDC 05:42
PROVIDERS: ATTEND Internal Medicine Gastroenterology
PROC: 0DJ08ZZ Inspection of Upper Intestinal Tract, Via Natural or Artificial Opening Endoscopic (ICD-10-PCS; principal; 2025-02-09)
DX: K74.60 Unspecified cirrhosis of liver (principal); I85.10 Secondary esophageal varices without bleeding; K76.6 Portal hypertension; K31.89 Other diseases of stomach and duodenum; F17.210 Nicotine dependence, cigarettes, uncomplicated; I81 Portal vein thrombosis; C22.0 Liver cell carcinoma; I10 Essential (primary) hypertension; Z79.899 Other long term (current) drug therapy
CPT/HCPCS: 43235; J3490; J2704